=== PATIENT | female | born 1985 | race Caucasian/White ===

== ENCOUNTER 2017-05-27 21:57 | Emergency (ER) | payer OTHER, SELFPAY | END 2017-05-28 00:22 | disposition home or self-care (01) | PROVIDERS: Emergency Provider Emergency Medicine; Visit Provider Emergency Medicine | DX: Z48.02 Encounter for removal of sutures (principal) ==

== ENCOUNTER 2021-12-03 | Emergency (ER) | payer MEDICARE, SELFPAY ==
[2021-12-03 00:09] VITALS: BP 136/81; PULSE 68; RESP 20; TEMP 36.6; O2SAT 99
--- NOTE | 2021-12-03 00:29 | ED_ITS ---
HPI - Dental/Oral General Chief complaint: Dental/Oral Stated complaint: rt. side broken tooth painful Time Seen by Provider: 12/03/21 00:23 Source: patient Mode of arrival: Ambulatory History of Present Illness HPI Narrative: Patient here for right upper back tooth pain that started tonight. Patient states she broke this tooth about 2 months ago. Has not had time to see a dentist because of family needs. No trouble breathing no trouble swallowing. Patient has history of poor dentition. Fiance drove patient tonight Related Data Home Medications Medication Instructions Recorded Confirmed dextroamphetamine-amphetamine 20 40 mg ##0 10/01/17 mg tablet (Adderall) doxycycline monohydrate 50 mg ##0 10/01/16 tablet Previous Rx's Medication Instructions Recorded ondansetron 4 mg disintegrating 4 mg sublingual Q4HP PRN ##15 05/18/17 tablet (Zofran ODT) ibuprofen 800 mg tablet 800 mg PO Q8H PRN pain #20 tabs 12/03/21 penicillin V potassium 500 mg 500 mg PO QID #40 tabs 12/03/21 tablet Allergies Allergy/AdvReac Type Severity Reaction Status Date / Time No Known Allergies Allergy Uncoded 05/16/17 12:15 Review of Systems Review of Systems Narrative: GENERAL: Denies chills, fatigue, malaise, fever, sweats. HEENT: Denies sinus pain, ear pain, sore throat, positive dental pain RESPIRATORY: Denies dyspnea, cough CARDIOVASCULAR: Denies chest pain, palpitations GASTROINTESTINAL: Denies nausea, vomiting, abdominal pain : Denies dysuria, frequency, hematuria MUSCULOSKELETAL: denies muscle or bony pain SKIN: Denies rash, skin lesions NEUROLOGIC: Denies weakness, numbness ROS Unobtainable: All systems reviewed & are unremarkable except as noted in HPI and below Patient History Social History Smoking Status: Former smoker Smoking Status: Former smoker alcohol intake frequency: a few times a week Substance Use Type: does not use Exam Narrative Exam Narrative: GENERAL: in no distress, not toxic not dyspneic HEAD: Normocephalic. EYES: Pupils equal round No scleral icterus. ENT: Mucous membranes moist. Tooth 2. Is tender to touch. No surrounding erythema edema. It is fractured. No palpable abscess. No erythema edema of the external skin/cheek. No trismus no malocclusion no tongue elevation. NECK: Trachea midline. CARDIOVASCULAR: Regular rate and rhythm without murmurs RESPIRATORY: Clear to auscultation. Breath sounds equal bilaterally. No wheezes, rales, or rhonchi. NEURO: AOx4. SKIN: Warm and dry PSYCH: Not anxious, is cooperative Initial Vital Signs Initial Vital Signs: Vital Signs Temperature 98 F 12/03/21 00:09 Pulse Rate 68 12/03/21 00:09 Respiratory Rate 20 12/03/21 00:09 Blood Pressure 136/81 12/03/21 00:09 Pulse Oximetry 99 12/03/21 00:09 Oxygen Delivery Method 12/03/21 00:09 Course Course Course Narrative: No new issues during course of stay Orders Ordered: Discontinued Medications Hydrocodone Bitart/Acetaminophen (Hydrocodone/Acet 5/325 Tablet) 1 tab PO NOW ONE Stop: 12/03/21 00:30 Last Admin: 12/03/21 00:42 Dose: 1 tab Documented By: DIONTE Ondansetron HCl (Ondansetron 4 Mg Odt) 4 mg SL NOW ONE Stop: 12/03/21 00:30 Last Admin: 12/03/21 00:42 Dose: 4 mg Documented By: DIONTE Penicillin V Potassium (Penicillin Vk 250 Mg Tablet) 500 mg PO NOW ONE Stop: 12/03/21 00:29 Last Admin: 12/03/21 00:42 Dose: 500 mg Documented By: DIONTE Reevaluation(s) Reevaluation #1: 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 Agrees with treatment plan and starting antibiotics tonight. Return precautions reviewed with her. She desires discharge home. Time: 00:36 Vital Signs Vital signs: Vital Signs - 8 hr 12/03/21 00:09 12/03/21 00:51 Temperature 98 F Pulse Rate 68 72 Respiratory Rate 20 18 Blood Pressure 136/81 131/79 Pulse Oximetry 99 98 Oxygen Delivery Method Room Air Room Air MDM - Dental/Oral Differential Diagnosis Differential diagnosis: Likely gingival abscess, dental caries, toothache, dental abscess and fracture of tooth MDM Narrative Medical decision making narrative: Appropriate for discharge home. Exam reassuring. Not toxic. Airway intact. No drooling no trismus. 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 Return precautions reviewed with patient. Pain medication given here to help for sleep tonight. Antibiotics started. Outpatient referral given. Discharge Plan Departure Patient Disposition: Home Clinical Impression: Fracture of tooth Instructions: DI for Dental Pain, Tooth Fracture Activity Restrictions/Additional Instructions: See your dentist next week for re-evaluation. Be sure to complete antibiotics prescribed to you. Call provided primary care referral phone number to establish family doctor. Call [phone]. No driving or operating machinery tonight. Return if worse if any questions or concerns Prescriptions: New penicillin V potassium 500 mg tablet 500 mg PO QID Qty: 40 0RF ibuprofen 800 mg tablet 800 mg PO Q8H PRN (Reason: pain) Qty: 20 0RF No Action doxycycline monohydrate 50 MG tablet Qty: 0 dextroamphetamine-amphetamine [Adderall] 20 MG tablet 40 mg Qty: 0 ondansetron [Zofran ODT] 4 MG tablet,disintegrating 4 mg Sublingual Q4HP PRNQty: 15 0RF Referrals: Anthony Bryan MD [Primary Care Provider] - Visit Report Forms: Patient Portal/API
[2021-12-03] MEDS: ONDANSETRON 4 MG ODT SL (00:42)
[2021-12-03] MEDS: PENICILLIN VK 250 MG TABLET 500 MG PO (00:42)
[2021-12-03] MEDS: HYDROCODONE/ACET 5/325 TABLET 1 TAB PO (00:42)
[2021-12-03 00:51] VITALS: BP 131/79; PULSE 72; RESP 18; O2SAT 98
== END 2021-12-03 00:57 | disposition home or self-care (01) ==
PROVIDERS: Emergency Provider Emergency Medicine; PCP Family Medicine
DX: S02.5XXA Fracture of tooth (traumatic), initial encounter for closed fracture (principal)
CPT/HCPCS: 99283

== ENCOUNTER 2023-06-01 11:04 | Emergency (ER) | payer OTHER, MEDICAID, SELFPAY ==
[2023-06-01 11:11] VITALS: BP 123/71; PULSE 87; RESP 16; TEMP 36.8; O2SAT 100; BMI 26.6
--- NOTE | 2023-06-01 11:27 | ED_ITS ---
HPI - Ear Problem <Darrell Steve PA-C - Last Filed: 06/01/23 11:48> General Chief complaint: Ear Stated complaint: ear bleeding lf Time Seen by Provider: 06/01/23 11:22 Source: patient Mode of arrival: Ambulatory History of Present Illness HPI Narrative: This is a 37-year-old female presents emergency department due to reports of noticing some blood coming from her left external auditory canal after taking a shower this morning she denies any recent flights or scuba diving or any other things that would cause any kind of barotrauma. Denies any fevers, nausea, vomiting, or other systemic symptoms. Does not use Q-tips in her external auditory canal. Of note patient was partially deaf and does not usually hear very well from her left ear and denies any decrease changes of hearing. Related Data Home Medications Medication Instructions Recorded Confirmed dextroamphetamine-amphetamine 20 40 mg ##0 10/01/17 mg tablet (Adderall) doxycycline monohydrate 50 mg ##0 10/01/16 tablet Previous Rx's Medication Instructions Recorded ondansetron 4 mg disintegrating 4 mg sublingual Q4HP PRN ##15 05/18/17 tablet (Zofran ODT) ibuprofen 800 mg tablet 800 mg PO Q8H PRN pain #20 tabs 12/03/21 penicillin V potassium 500 mg 500 mg PO QID #40 tabs 12/03/21 tablet Allergies Allergy/AdvReac Type Severity Reaction Status Date / Time No Known Allergies Allergy Uncoded 06/01/23 11:16 Review of Systems <Darrell Steve PA-C - Last Filed: 06/01/23 11:48> Review of Systems Narrative: GENERAL: Denies chills, fatigue, malaise, fever, sweats. HEENT: Reports left ear bleeding, Denies sinus pain, ear pain, sore throat, difficulty swallowing, dizziness. RESPIRATORY: Denies dyspnea, cough, wheezing, hemoptysis, sputum. CARDIOVASCULAR: Denies chest pain, palpitations, orthopnea, edema, GASTROINTESTINAL: Denies nausea, vomiting, abdominal pain, diarrhea, constipation, melena. : Denies dysuria, frequency, incontinence, hematuria, urinary retention. MUSCULOSKELETAL: denies weakness, joint pain, or bony pain SKIN: Denies rash, skin lesions, or other NEUROLOGIC: Denies weakness, headache, numbness, change in speech, confusion, seizures, incoordination. PSYCHIATRIC: No concerning psychosocial issues. 12 point review of systems is negative except for those stated above Patient History <Darrell Steve PA-C - Last Filed: 06/01/23 11:48> Social History Smoking Status: Current every day smoker Smoking Status: Current every day smoker tobacco type: cigarettes alcohol intake frequency: a few times a week Substance Use Type: does not use Exam <ERIC Lobo Last Filed: 06/01/23 11:48> Narrative Exam Narrative: GENERAL: Well-developed patient, in mild distress. HEAD: Atraumatic. Normocephalic. EYES: Pupils equal round and reactive. Extraocular motions intact. No scleral icterus. No injection or drainage. ENT: Nose without bleeding, purulent drainage. Throat without erythema, tonsillar hypertrophy or exudate. Airway patent. Left TM is unremarkable and completely intact. There is some dried amount of blood in the external auditory canal. No erythema to the TM and no purulent drainage. NECK: Trachea midline. Non tender EXTREMITIES: No edema or joint tenderness. NEURO: AOx3. SKIN: No rash or erythema of visible areas Initial Vital Signs Initial Vital Signs: Vital Signs Temperature 98.2 F 06/01/23 11:11 Pulse Rate 87 06/01/23 11:11 Respiratory Rate 16 06/01/23 11:11 Blood Pressure 123/71 06/01/23 11:11 Pulse Oximetry 100 06/01/23 11:11 Oxygen Delivery Method Room Air 06/01/23 11:11 <Anthony Palmer DO - Last Filed: 06/01/23 12:38> Initial Vital Signs Initial Vital Signs: Vital Signs Temperature 98.2 F 06/01/23 11:11 Pulse Rate 87 06/01/23 11:11 Respiratory Rate 16 06/01/23 11:11 Blood Pressure 123/71 06/01/23 11:11 Pulse Oximetry 100 06/01/23 11:11 Oxygen Delivery Method Room Air 06/01/23 11:11 Course <ERIC Lobo Last Filed: 06/01/23 11:48> Vital Signs Vital signs: Vital Signs - 8 hr 06/01/23 11:11 Temperature 98.2 F Pulse Rate 87 Respiratory Rate 16 Blood Pressure 123/71 Pulse Oximetry 100 Oxygen Delivery Method Room Air <Anthony EstelaDO - Last Filed: 06/01/23 12:38> Vital Signs Vital signs: Vital Signs - 8 hr 06/01/23 11:11 Temperature 98.2 F Pulse Rate 87 Respiratory Rate 16 Blood Pressure 123/71 Pulse Oximetry 100 Oxygen Delivery Method Room Air Medical Decision Making <Darrell Steve PA-C - Last Filed: 06/01/23 11:48> MDM Narrative Medical decision making narrative: ED course: This is a 37-year-old female presents emergency department due to concerns of left ear bleeding. On exam the TM was completely intact with out any evidence of hemotympanum. There was some dried blood in external auditory canal. Patient may have possibly scratched the inside of her ear. There was no active bleeding. No changes in hearing. CC: Bleeding from left ear Complicating co-morbidities: Patient is chronically partially deaf Data collected from: Previous notes Medical records reviewed: Patient was last seen in this emergency department about a year and a half ago due to tooth pain. Former smoker. Differential considered, but not limited to: Hemotympanum, perforated TM, trauma to the external auditory canal Exam documented above, pertinent findings include: TM is completely intact and unremarkable Lab Test results independently reviewed as above. Pertinent findings: None obtained Imaging studies independently reviewed: None obtained Scores Used: None MIPS Elements: None Consultations: None Treatments: None Re-evaluations: None Discussion: Discussed plan with the patient was comfortable with the plan Diagnosis: Trauma to the external auditory canal Disposition: see below, along with detailed discharge instructions that have been reviewed with patient as well as indications for ED re-evaluation and additional outpatient follow up Discharge Plan Departure Patient Disposition: Home Clinical Impression: Injury of external auditory canal Activity Restrictions/Additional Instructions: Thank you for coming to the [facility] Department today. As we discussed the tympanic membrane of your ear appears completely normal. There is a small amount of dried blood in your external auditory canal. You may use cotton balls in the area of the continues to bleed to help stop the bleeding. Please return to the emergency department if you develop any fevers, significant new or worsening pain, or any other concerning signs or symptoms. I hope you feel better soon. Please follow up with your primary care provider within a week if your symptoms continue. If you do not have a primary care provider please contact the [facility] Resource line at [phone]. They will ask some questions about your medical history and help you get set up with a provider in the community. Prescriptions: No Action doxycycline monohydrate 50 MG tablet Qty: 0 dextroamphetamine-amphetamine [Adderall] 20 MG tablet 40 mg Qty: 0 ondansetron [Zofran ODT] 4 MG tablet,disintegrating 4 mg Sublingual Q4HP PRNQty: 15 0RF penicillin V potassium 500 mg tablet 500 mg PO QID Qty: 40 0RF ibuprofen 800 mg tablet 800 mg PO Q8H PRN (Reason: pain) Qty: 20 0RF Referrals: Anthony Bryan MD [Primary Care Provider] - Stand Alone Forms: Patient Portal/API ED Sign-out <Anthony Palmer DO - Last Filed: 06/01/23 12:38> Cosign ED Attending Cosignature Attestation: Dr Palmer Co-Sign Statement: I was available for consultation during this patient's emergency department visit. This chart is signed by myself for administrative purposes only. I did not have direct contact with this patient during this visit. They were seen independently by the APC.
== END 2023-06-01 12:05 | disposition home or self-care (01) ==
PROVIDERS: Emergency Provider Physician Assistant Medical; PCP Family Medicine
DX: S09.91XA Unspecified injury of ear, initial encounter (principal); X58.XXXA Exposure to other specified factors, initial encounter
CPT/HCPCS: 99281; 99282

== ENCOUNTER → 2024-05-27 10:58 | Outpatient (CLI) | payer OTHER, SELFPAY ==
--- NOTE | 2024-05-27 11:00 | DI.MRI.S_ITS ---
PROCEDURE: MR SHOULDER RT WO CON INDICATIONS: PAIN IN RT SHOULDER TECHNIQUE: Noncontrast oblique coronal T2 fast spin echo with fat saturation, oblique sagittal T1 spin echo and T2 fast spin echo with fat saturation, axial T1 spin echo and T2 fast spin echo with fat saturation through the shoulder. COMPARISON: None. FINDINGS: Image quality: Excellent. Rotator cuff: Low-grade bursal surface partial-thickness tear involving distal supraspinatus at its insertion on the humeral head is seen extending to musculotendinous junction. Low-grade articular surface partial-thickness tear involving distal infraspinatus at its insertion on the humeral head. Distal subscapularis tendinosis is seen. No full-thickness rotator cuff tendon rupture. Sagittal images demonstrate no significant rotator cuff muscle atrophy. Bones and bursae: No bone marrow contusions or fractures. Mild acromioclavicular joint osteoarthritic changes are seen with joint space narrowing and downward osteophyte formation depressing the musculotendinous junction of supraspinatus. Type 2 acromion without an os acromiale. Small amount of joint effusion and subacromial subdeltoid bursal fluid is present. Capsule and soft tissues: Signal abnormality and fraying involving superior anterior glenoid labrum concerning for subtle superior anterior labral tear. The long head of the biceps tendon demonstrates normal location and morphology. The rotator interval appears normal, without fibrosis. The coracohumeral ligament is normal in thickness. IMPRESSION: 1. Low-grade bursal surface partial-thickness tear involving distal supraspinatus extending to musculotendinous junction. Low-grade articular surface partial-thickness tear involving distal infraspinatus. Distal subscapularis tendinosis. No full-thickness rotator cuff tendon rupture. No significant rotator cuff muscle atrophy. 2. Mild acromioclavicular joint osteoarthritis. No fracture or dislocation. Small amount of joint subacromial subdeltoid bursal fluid, no loose bodies. 3. Finding is concerning for very subtle superior anterior glenoid labral tear. Dictated by: Hollis Dugan M.D. on 05/27/2024 at 15:41 Approved by: Hollis Dugan M.D. on 05/27/2024 at 16:01
== END ==
PROVIDERS: PCP Family Medicine; Referring Provider Family Medicine; Visit Provider Family Medicine
DX: M75.111 Incomplete rotator cuff tear or rupture of right shoulder, not specified as traumatic (principal); M19.011 Primary osteoarthritis, right shoulder; M25.511 Pain in right shoulder
CPT/HCPCS: 73221